=== PATIENT | female | born 1990 | race Caucasian/White ===

== ENCOUNTER 2020-10-10 16:31 | Emergency (ER) | payer BC, SELFPAY ==
--- NOTE | ~2020-10-10 | XR_ITS ---
EXAMINATION: XR chest 1V portable DATE: 10/10/2020 17:51 INDICATION: Chest pain TECHNIQUE: frontal view of the chest was obtained. COMPARISON: None FINDINGS: The lungs are clear with no focal airspace opacities, pulmonary edema, pleural effusion or pneumothor ax. The cardiomediastinal silhouette is normal. Visualized bones and soft tissues are unremarkable. IMPRESSION: 1. No acute cardiopulmonary disease. Reviewed, dictated and finalized at location A. L [employer]ER
--- NOTE | 2020-10-10 16:35 | ECG_ITS ---
Measurements Intervals [place] Rate: 98 P: 57 OK: 170 QRS: 40 QRSD: 77 T: 23 QT: 317 QTc: 405 Interpretive Statements SINUS RHYTHM WITH MARKED SINUS ARRHYTHMIA POSSIBLE LEFT ATRIAL ENLARGEMENT BORDERLINE ST-T WAVE ABNORMALITY- INFERIOR LEADS BASELINE ARTIFACT- I, II, III, AVR, AVL, AVF, V1 BORDERLINE ECG Electronically Signed On 10-10-2020 19:18:20 AGRICULTURAL RESEARCH TECHNICIAN by Nicolas Murillo D.O.
[2020-10-10 16:36] VITALS: BP 154/88; PULSE 92; RESP 18; TEMP 35.9; O2SAT 98
[2020-10-10 16:47] VITALS: PULSE 94
--- NOTE | 2020-10-10 16:57 | ED.CHESTPAIN ---
HPI - Chest Pain General Chief Complaint: Chest Pain Stated Complaint: Chest Pain, SOB, Headache Time Seen by Provider: 10/10/20 16:37 Source: patient Mode of arrival: ambulatory Limitations: no limitations History of Present Illness HPI narrative: Patient is a 30-year-old female who presents complaining of chest pain, shortness of breath, fever and headache starting this a.m. She reports taking Tylenol with limited relief. Reports temperature of 100.8 prior to arrival. She reports the chest pain started as mild, she reports chest pain increases with movement or deep breathing, however, reports pain is not constant. She reports a history of [place]'s disease, she is not on control, she is a non-smoker. She denies known exposure to Covid at this time. MD complaint: chest pain Related Data Home Medications Medication Instructions Recorded Confirmed No Home Medications 10/10/20 10/10/20 Allergies Allergy/AdvReac Type Severity Reaction Status Date / Time No Known Allergies Allergy Verified 10/10/20 16:40 Review of Systems Review of Systems: Narrative: CONSTITUTIONAL: Reports fever, denies chills or sweats. EYES: Denies visual changes, redness, or discharge. ENT: Denies rhinorrhea, congestion, sore throat, or otalgia. CARDIOVASCULAR: Reports chest pain, denies palpitations or edema. RESPIRATORY: Reports dyspnea, denies cough. GASTROINTESTINAL: Denies abdominal pain, nausea, vomiting, or diarrhea. GENITOURINARY: Denies dysuria or hematuria. SKIN: Denies rash or itching. MUSCULOSKELETAL: Denies back pain, joint pain, or myalgia. NEUROLOGIC: Reports headache, denies numbness, dizziness, or weakness. PSYCHIATRIC: Denies anxiety or depression. [facility] Past Medical History Medical History (Updated 10/10/20 @ 20:28 by JUAN Navarro) Addisons disease Surgical History Surgical History (Updated 10/10/20 @ 17:02 by JUAN Navarro) No significant past surgical history Family History Family History (Updated 10/10/20 @ 17:02 by JUAN Navarro) Other No significant family history Social History Social History (Updated 10/10/20 @ 17:02 by JUAN Navarro) Smoking status: Never smoker Alcohol intake: current Alcohol use details: Occasional Substance use: never Living arrangements: with family Comments At the time of signature, I have reviewed and agree with nursing past medical, surgical, social, and family history unless otherwise noted. Please see nursing chart for further information. There is no relevant family history pertinent to the presenting complaint. Exam Narrative: Exam Narrative: GENERAL: Well-appearing, well-nourished, and in no acute distress. HEAD: Normocephalic, atraumatic. EYES: No redness or drainage. Conjunctiva are normal. ENT: Mucous membranes pink and moist. Nares clear. No rhinorrhea. NECK: AROM. Supple. No lymphadenopathy. CHEST: No respiratory distress. Clear to auscultation. HEART: Regular rate and rhythm. No murmur appreciated. EXTREMITIES: Normal range of motion. No edema. SKIN: Warm, dry, no rash. NEURO: No focal deficits. Alert and oriented x3. PSYCH: Normal affect. No signs of depression or anxiety. Course Vital Signs Vital signs: Vital Signs Temperature 35.9 C L 10/10/20 16:36 Pulse Rate 92 10/10/20 16:36 Respiratory Rate 18 10/10/20 16:36 Blood Pressure 154/88 H 10/10/20 16:36 Pulse Oximetry 98 10/10/20 16:36 Temperature 35.9 C L 10/10/20 16:36 Pulse Rate 94 10/10/20 16:47 Respiratory Rate 18 10/10/20 16:36 Blood Pressure 154/88 H 10/10/20 16:36 Pulse Oximetry 98 10/10/20 16:36 Reviewed-patient is informed that they may have pre-hypertension or hypertension based on a blood pressure reading. I recommend the patient call the primary care provider listed on their discharge instructions or a physician of their choice this week to arrange follow-up for further evaluation of poss
[2020-10-10] MEDS: ASPIRIN 81 MG CHEWABLE TABLET 324 MG PO (16:58)
[2020-10-10 18:09] LABS: Basophils Percent Auto 0.5 % (0.2-1.2); Eosinophils Absolute Auto 0.3 K/mm3 (0-0.3); Eosinophils Percent Auto 5.3 % (0-4.4); Hematocrit 38.9 % (37.0-47.0); Hemoglobin 13.3 g/dL (12.0-15.0); Immature Granulocyte Absolute 0.01 K/mm3 (0.00-0.031); Immature Granulocyte Percent A 0.2 % (0-0.5); Lymphocytes Absolute Auto 1.58 K/mm3 (0.9-3.2); Lymphocytes Percent Auto 25.3 % (18.3-44.2); Mean Corpuscular HGB Conc 34.2 g/dl (32-36); Mean Corpuscular Hemoglobin 31.3 pg (26-34); Mean Corpuscular Volume 91.5 fl (80-100); Mean Platelet Volume 10.7 fl (7.4-10.4); Monocytes Absolute Auto 0.6 K/mm3 (0.1-0.6); Monocytes Percent Auto 8.8 % (2.6-8.5); Neutrophils Absolute Auto 3.8 K/mm3 (1.3-6.7); Neutrophils Percent Auto 59.9 % (45.5-73.1); Platelet Count Result 263 k/mm3 (150-375); Red Blood Count 4.25 M/mm3 (4.2-5.4); Red Cell Distribution Width 11.4 % (11.5-14.5); White Blood Count 6.3 K/mm3 (4.5-10.0)
[2020-10-10 18:20] LABS: Anion Gap 6 mmol/L (8-16); Blood Urea Nitrogen 9 mg/dL (7-17); Calcium 9.1 mg/dL (8.4-10.2); Carbon Dioxide 23 mmol/L (22-30); Chloride 109 mmol/L (98-107); Estimated CRCL calculation 135 ml/min; Estimated Glomerular Filt Rate > 60; Glucose 88 mg/dL (65-105); Potassium 3.7 mmol/L (3.4-5.0); Sodium 138 mmol/L (137-145)
[2020-10-10 18:32] LABS: Troponin I < 0.012 ng/mL (0.000-0.034)
[2020-10-10 18:56] LABS: Partial Thromboplastin Time 33.7 SECONDS (22.3-36.8); Prothrombin Time 13.8 Seconds (11.1-14.7)
[2020-10-10 18:59] LABS: D Dimer 0.32 ug/mL (<0.48)
[2020-10-10 20:11] LABS: Troponin I < 0.012 ng/mL (0.000-0.034)
[2020-10-10 21:12] VITALS: BP 108/77; PULSE 103; RESP 20; TEMP 37.1; O2SAT 99
[2020-10-11 18:46] LABS: SARS-CoV-2 RNA PCR Negative
== END 2020-10-10 21:13 | disposition home or self-care (01) ==
PROVIDERS: Emergency Medicine; Emergency Provider Nurse Practitioner
DX: M94.0 Chondrocostal junction syndrome [Tietze] (principal); Z20.822 Contact with and (suspected) exposure to COVID-19; R94.31 Abnormal electrocardiogram [ECG] [EKG]; E27.1 Primary adrenocortical insufficiency; R03.0 Elevated blood-pressure reading, without diagnosis of hypertension
CPT/HCPCS: 36415; 71045; 80048; 84484; 85025; 85380; 85610; 85730; 93005; 99284; A9270; C9803; U0003; U0005

== ENCOUNTER 2021-01-17 23:24 | Emergency (ER) | payer BC, SELFPAY ==
--- NOTE | ~2021-01-17 | XR_ITS ---
EXAMINATION: XR lumbar spine 2-3V DATE: 01/18/2021 01:50 INDICATION: Left-sided low back pain. Fall. TECHNIQUE: 3 views of lumbar spine were obtained. COMPARISON: None. FINDINGS: There is 6 degrees curvature of lumbar spine. Vertebral body heights and intervertebral dis c heights are normal. The facet joints are unremarkable. Surgical clips in the right upper quadrant a re likely from cholecystectomy. IMPRESSION: 1. No etiology for the patient's symptoms. Reviewed, dictated and finalized at location A.
--- NOTE | ~2021-01-17 | XR_ITS ---
EXAMINATION: XR pelvis 1-2V DATE: 01/18/2021 01:51 INDICATION: Left hip pain. TECHNIQUE: An anteroposterior view of the pelvis was obtained. COMPARISON: None. FINDINGS: Bone alignment is normal. No fracture. Joint spaces are well maintained. IMPRESSION: 1. Normal pelvis. Reviewed, dictated and finalized at location A. IMPRESSION: 1. Normal pelvis.
--- NOTE | ~2021-01-17 | XR_ITS ---
EXAMINATION: XR thoracic spine 3V DATE: 01/18/2021 01:51 INDICATION: Low back pain. Fall. TECHNIQUE: 3 views of thoracic spine were obtained. COMPARISON: None. FINDINGS: There is 3 degrees levocurvature of thoracic spine. Vertebral body heights are normal. Ther e are endplate osteophytes at a few levels. Intervertebral disc heights are normal. Surgical clips in the right upper quadrant are likely from cholecystectomy. IMPRESSION: 1. Mild thoracic spondylosis. Reviewed, dictated and finalized at location A.
[2021-01-17 23:32] VITALS: BP 144/104; PULSE 91; RESP 18; TEMP 36.8; O2SAT 100
--- NOTE | 2021-01-18 00:35 | ED.BACK ---
HPI - Back Pain/Injury General Chief Complaint: Back Pain/Injury <Charlie Loco MD - Last Filed: 01/18/21 00:42> Stated Complaint: lower back injury <Charlie Loco MD - Last Filed: 01/18/21 00:42> Time Seen by Provider: 01/18/21 00:42 <Charlie Loco MD - Last Filed: 01/18/21 00:42> Source: patient <Charlie Loco MD - Last Filed: 01/18/21 00:42> Mode of arrival: ambulatory <Charlie Loco MD - Last Filed: 01/18/21 00:42> Limitations: no limitations <MD Sebastián Foreman Last Filed: 01/18/21 00:42> History of Present Illness HPI Narrative: Patient is 31 years old white female presents to the ED with lower back pain started yesterday after a fall. Patient was running in the kitchen, wearing socks, slipped and flew in the air landed flat on her back. Patient denies other injuries, no loss of consciousness, was able to manage to get up and walk to her bedroom. Patient been using [id number] ibuprofen, Tylenol without any improvement. patient denies bowel dysfunction, bladder dysfunction, altered sensation, focal weakness, or saddle numbness, patient reported the lower back pain is spastic, intermittent shooting to her legs. No history of back pain. History of Rigo's disease. Patient drove herself to the emergency room <Charlie Loco MD - Last Filed: 01/18/21 00:42> Related Data Home Medications: Home Medications Medication Instructions Recorded Confirmed prednisone 01/18/21 <Charlie Loco MD - Last Filed: 01/18/21 00:42> Allergies/Adverse Reactions: Allergies Allergy/AdvReac Type Severity Reaction Status Date / Time No Known Allergies Allergy Verified 10/10/20 16:40 <MD Sebastián Foreman Last Filed: 01/18/21 00:42> Review of Systems Review of Systems: Narrative: CONSTITUTIONAL: Denies fever, chills, or sweats. EYES: Denies visual changes, redness, or discharge. ENT: Denies rhinorrhea, congestion, sore throat, or otalgia. CARDIOVASCULAR: Denies chest pain, palpitations, or edema. RESPIRATORY: Denies cough or dyspnea. GASTROINTESTINAL: Denies abdominal pain, nausea, vomiting, or diarrhea. GENITOURINARY: Denies dysuria or hematuria. SKIN: Denies rash or itching. MUSCULOSKELETAL: Denies back pain, joint pain, or myalgia. NEUROLOGIC: Denies headache, numbness, or weakness. PSYCHIATRIC: Denies anxiety or depression. <Charlie Loco MD - Last Filed: 01/18/21 00:42> [facility] Past Medical History Medical History: Medical History Addisons disease <Charlie Loco MD - Last Filed: 01/18/21 00:42> Surgical History Surgical History: Surgical History No significant past surgical history <Charlie Loco MD - Last Filed: 01/18/21 00:42> Family History Family History: Family History Other No significant family history <Charlie Loco MD - Last Filed: 01/18/21 00:42> Social History Social History: Social History Smoking status: Never smoker Alcohol intake: current Substance use: never <Charlie Loco MD - Last Filed: 01/18/21 00:42> Exam Narrative: Exam Narrative: General appearance: Well-developed, well-nourished, looks uncomfortable Skin: Normal color Head: Normocephalic, nontraumatic Eyes: Clear conjunctiva ENT: Oropharynx normal, ears normal, nose normal Neck: Supple, nontender Chest and respiratory: Airway patent, no respiratory distress, no accessory muscle use Heart: Regular rate/rhythm Abdomen: Soft, nontender, no organomegaly, quiet bowel sounds Vascular: Normal peripheral pulses, normal capillary refill. Musculoskeletal: Severe diffuse tenderness mid lower thoracic and mid lumbar. No bruises, no swelling or rash. Severe limited range of motion Neurologic: Alert and oriented ?3, RETAIL PHARMACY TECHNICIAN is normal as tested,
[2021-01-18] MEDS: KETOROLAC 30 MG/ML VIAL (*BKC) IV PUSH (01:15)
[2021-01-18] MEDS: HYDROCORTISONE SODIUM SUCCINATE 100 MG/2 ML VIAL IV PUSH (01:19)
[2021-01-18] MEDS: HYDROmorphone HCL INJ (*CRX) 1 MG/ML SYR 0.5 MG IV PUSH (01:22)
[2021-01-18] MEDS: diazePAM INJ (*CRX) 10 MG/2 ML SYRINGE 5 MG IV PUSH (01:23)
[2021-01-18 02:30] VITALS: BP 117/71; PULSE 74; RESP 16; O2SAT 100
== END 2021-01-18 02:55 | disposition home or self-care (01) ==
PROVIDERS: Emergency Provider Emergency Medicine; PCP Chiropractor
DX: S30.0XXA Contusion of lower back and pelvis, initial encounter (principal); E27.1 Primary adrenocortical insufficiency; M47.814 Spondylosis without myelopathy or radiculopathy, thoracic region; W01.0XXA Fall on same level from slipping, tripping and stumbling without subsequent striking against object, initial encounter
CPT/HCPCS: 72072; 72100; 72170; 81025; 96374; 96375; 99284; J1170; J1720; J1885; J3360

== ENCOUNTER 2022-03-31 10:18 | Outpatient (CLI) | payer BC, SELFPAY ==
[2022-03-31 10:43] LABS: Basophils Absolute Auto 0.1 K/mm3 (0.0-0.1); Basophils Percent Auto 1.1 % (0.2-1.2); Eosinophils Absolute Auto 0.5 K/mm3 (0-0.3); Eosinophils Percent Auto 10.8 % (0-4.4); Hematocrit 35.4 % (37.0-47.0); Lymphocytes Absolute Auto 1.54 K/mm3 (0.9-3.2); Lymphocytes Percent Auto 33.9 % (18.3-44.2); Mean Corpuscular HGB Conc 33.9 g/dl (32-36); Mean Corpuscular Hemoglobin 31.4 pg (26-34); Mean Corpuscular Volume 92.7 fl (80-100); Mean Platelet Volume 10.5 fl (7.4-10.4); Monocytes Absolute Auto 0.4 K/mm3 (0.1-0.6); Monocytes Percent Auto 8.8 % (2.6-8.5); Neutrophils Absolute Auto 2.1 K/mm3 (1.3-6.7); Neutrophils Percent Auto 45.4 % (45.5-73.1); Platelet Count Result 291 k/mm3 (150-375); Red Blood Count 3.82 M/mm3 (4.2-5.4); White Blood Count 4.5 K/mm3 (4.5-10.0)
== END 2022-03-31 10:19 | disposition home or self-care (01) ==
LOC: ANHSURGERY 10:23
PROVIDERS: PCP Family Medicine; Visit Provider Student in an Organized Health Care Education/Training Program
DX: D21.9 Benign neoplasm of connective and other soft tissue, unspecified (principal)
CPT/HCPCS: 36415; 85025; 86850; 86900; 86901

== ENCOUNTER 2022-04-02 00:40 | Day surgery (SDC) | payer BC, SELFPAY ==
[2022-03-27 13:41] VITALS: BMI 23.1
--- NOTE | 2022-03-27 13:50 | PC.NURSE ---
Report to the Outpatient Waiting Room, entrance under the green pavilion located off [facility], at time 10:00 on date _04/02/22___. OR Time: _1200_. - You and your visitor will be asked a series of questions to screen for COVID 19 for your protection. - Only one visitor is allowed at this time. - The patient visitor is requested to leave or wait in car when not with patient. - A mask is required within the hospital. Patients may have clear liquids (water, carbonated beverages, clear teas, apple juice) until 3 hours prior to surgery with a maximum of 20 ounces. - No food from midnight until time of surgery - Infants may have breast milk until 4 hours before surgery, formula 6 hours prior to surgery. - Children will be allowed to drink immediately following surgery. If applicable, please bring a bottle or sippy cup to assist with drinking. Juice, water, soda, and popsicles are readily available. For infants on formula, please bring formula the day of surgery. Pacifiers are allowed. Take the following medications with a SIP of water the morning of surgery: ___NONE Medications to discontinue per physician NONE Date to take last dose__N/A Please no make-up, nail stateless, hairspray, perfume, deodorant, or body powder the day of surgery. No jewelry (including any body piercings) or valuables the day of surgery, leave them at home. Please take a shower or bath the night before, or the morning of, surgery with an antibacterial soap. Wear comfortable, loose fitting clothing. Children are encouraged to wear pajamas. - Jewelry must be removed prior to entering the operating room. Rings and piercings that are not removed may be cut off. - The hospital will not accept responsibility for valuables. - Please leave all valuables, including medications, at home the day of surgery. If you are going home after surgery, a licensed driver sales must drive you home. - NO public transportation without another adult. - We recommend that an adult stay with you for 24 hours following discharge. - We also recommend that you do not drive, make important decision, drink alcoholic beverages, or take any drugs that were not prescribed by your health care provider for at least 24 hours after your discharge time. For Pediatric surgeries, we recommend two adults accompany the child home (only one inside the building at this time). Follow any additional instructions given to you from your surgeon. If you or anyone in your household have experienced Covid symptoms in the past week, please notify your surgeon or the nurse liaison at the phone number below for possible testing. Telephone instructions given to _PATIENT and asked if any additional questions and then verbalized understanding. Patient advised to call surgeon office or pre surgery nurse liaison [phone] if any additional questions.
--- NOTE | 2022-04-01 16:05 | PM.IMHP ---
H&P: HPI History of Present Illness Date/Time: 04/01/22 16:05 Chief Complaint: abnormal uterine bleeding uterine fibroids Narrative: 32 yo who presents for robotic assisted TLH/BS for AUB secondary to uterine fibroids. Pt was complaining of heavy painful periods. Pt was noted to have a 3.5 cm uterine fibroid. Pt has tried and failed medical management. Pt symptoms were so bad she was missing 2-3 days of work per month. Pt desires definitive management. Review of Systems Cardiovascular: Cardiovascular: Denies chest pain, Denies leg edema, Denies palpitations, Denies dyspnea and Denies dyspnea on exertion Respiratory: Respiratory: Denies cough, Denies dyspnea and Denies dyspnea on exertion Gastrointestinal: Gastrointestinal: Denies abdominal pain, Denies constipation, Denies diarrhea, Denies nausea and Denies vomiting Genitourinary: Genitourinary: Denies hematuria, Denies urinary frequency, Denies dysuria, Denies pelvic pain, Denies urinary incontinence and Denies vaginal discharge Neurologic: Reports system reviewed and no additional complaints, except as documented Psychiatric: Psychiatric: Reports no additional psychiatric complaints Endocrine: Endocrine: Denies palpitations PMFSH Past Medical History Medical History (Updated 04/01/22 @ 16:09 by Thomas Root MD) Addisons disease Surgical History Surgical History No significant past surgical history Family History Family History Other No significant family history Social History Social History Smoking status: Never smoker Tobacco type: e-cigarettes/vaping Additional smoking assessment comments: VAPING FOR ONE YEAR Alcohol intake: former Alcohol use details: LAST DRANK 3 YRS AGO Substance use: never Substance use type: does not use Meds Home Medications and Allergies Home Medications Medication Instructions Recorded Confirmed Type No Home Medications 03/27/22 03/27/22 History Allergies Allergy/AdvReac Type Severity Reaction Status Date / Time No Known Allergies Allergy Verified 03/27/22 13:39 Exam Const: General: no acute distress Eyes: EOM: EOMs intact bilaterally Neck: Neck: supple Thyroid: thyroid normal Chest: Breast/axilla inspection: normal inspection of the breasts Breast/axilla palpation: normal palpation of the breasts, normal palpation of the axillae and no axillary lymphadenopathy Resp: Effort & Inspection: normal respiratory effort Auscultation: clear to auscultation bilaterally Cardio: Rate: regular rate Rhythm: regular rhythm GI: Inspection: non-distended GI Palp: Yes Soft to palpation, No Tenderness to palpation present (GI) and No Guarding due to palpation present (GI) Auscultation: normal bowel sounds : General: No bladder normal to palpation External Female Exam: normal external appearance Speculum Exam - Vagina: normal vaginal discharge and No vaginal bleeding Speculum Exam - Cervix: nontender Bimanual exam- vagina & uterus: No bladder normal to palpation and No Cervical tenderness present OB/external & speculum: No vaginal bleeding Skin: General skin exam: normal color and no rashes or lesions noted Neuro: Cognition (Neuro): normal cognition Speech: normal speech Extrem: General: normal to inspection and no edema Psych: Mental Status: mental status grossly normal Affect: normal affect Assessment and Plan Assessment and plan (1) Abnormal uterine bleeding (AUB): Code(s): N93.9 - Abnormal uterine and vaginal bleeding, unspecified Status: Acute Assessment and Plan: Pt complaining of heavy and painful menses symptoms are bad enough to cause her to miss work pt has tried and failed medical management H/H stable plan for TLH/BS (2) Uterine fibroid: Code(s): D25.9 - Leiomyoma of ut
[2022-04-02] VITALS (11 sets, daily range): BP systolic 92–126; BP diastolic 41–72; PULSE 61–99; RESP 10–20; TEMP 36–37.2; O2SAT 96–100
--- NOTE | 2022-04-02 08:27 | P.PNAN_ITS ---
Anes - Initial Pre Proc Eval Procedure: Operation Date: 04/02/22 12:00 Proposed Procedures p Robotic Total Laparoscopic Hysterectomy With Bilateral Salpingectomy - Thomas Root MD Date/Time: 04/02/22 08:27 Surgeon: Thomas Root MD Pre Op Diagnosis: Enlarged Uterus, Fibroids, Excessive Bleeding Patient Data Age: 32 Gender: F Height: 1.7 m Weight: 67 kg Allergies Allergy/AdvReac Type Severity Reaction Status Date / Time No Known Allergies Allergy Verified 04/02/22 09:57 Home Medications Medication Instructions Recorded Confirmed Type No Home Medications 03/27/22 03/27/22 History Patient hx anesthesia problems: none Family hx anesthesia problems: none Results Review: All pre-operative results and documents have been reviewed as part of the pre- operative evaluation. [facility] Past Medical History Medical History (Updated 04/01/22 @ 16:09 by Thomas Root MD) Addisons disease Surgical History Surgical History No significant past surgical history Family History Family History Other No significant family history Social History Social History Smoking status: Never smoker Tobacco type: e-cigarettes/vaping Additional smoking assessment comments: VAPING FOR ONE YEAR Alcohol intake: former Alcohol use details: LAST DRANK 3 YRS AGO Substance use: never Substance use type: does not use Living arrangements: with family Anes - Eval Final PreProcedure Day of Procedure 04/02/22 08:27 Patient weight: normal Heart: regular rate and rhythm Lungs: clear to auscultation and normal air movement Airway: Mallampati scale class II Neurological: alert and oriented Last oral intake: >/= 8 hours ASA classification: II Emergent: no Anesthetic plan: proceed Anesthesia type and monitoring: general ETT Results Review: All pre-operative results and documents have been reviewed as part of the pre- operative evaluation. Informed Consent: The patient's anesthetic plan and its attendant risks and benefits were discussed with the patient/family/POA. Questions were solicited and answers provided to the satisfaction of the patient/family/POA.
[2022-04-02] MEDS: ACETAMINOPHEN 500 MG TABLET 1000 MG PO (10:19)
--- NOTE | 2022-04-02 10:27 | WPDHPUPDATE1 ---
History and Physical Update Update Date/Time: 04/02/22 10:27 History and Physical has been reviewed, including an updated exam of the patient. There are NO changes in the patient's condition. Risks, benefits, and alternatives have been discussed and questions answered. Patient agrees to proceed with procedure.
[2022-04-02] MEDS: LACTATED RINGERS 1,000 ML 30 ML IV CONT ×2 (10:55→13:50)
[2022-04-02] MEDS: KETOROLAC 15 MG/ML VIAL (*BKC) IV PUSH (11:03)
[2022-04-02] MEDS: ceFAZolin 2 GM/D5W 50 ML 2 GM/50 ML BAG IVPB (12:13)
[2022-04-02] MEDS: LIDOCAINE/EPINEPHRINE 0.5%/1:200,000 50 ML VIAL 30 ML INFILTRATE (12:56)
--- NOTE | 2022-04-02 13:42 | W.PM.PROC2 ---
Procedure Note - Detailed Date of Procedure 04/02/22 Pre-op Diagnosis Enlarged Uterus, Fibroids, Excessive Bleeding Post-op Diagnosis Same Procedure Performed Robotic assisted TLH/BS Surgeon Thomas Root MD Anesthesia General Indications AUB-L Findings 3-4 cm posterior submucosal uterine fibroid, normal appearing bilateral fallopian tubes and ovaries Description of Procedure After the patient was appropriately consented she was taken to the operating room where she was transferred to the table in a dorsal supine position. General anesthesia was then induced with endotracheal intubation. The patient was transferred to a dorsal lithotomy position using adjustable yellow-fin stirrups. Her position was adjusted for appropriate support of her lower back and lower extremities. The patient was prepped and draped. A transurethral harp catheter was place. The cervix was sequentially dilated and a Audi Delineater uterine manipulator placed in typical fashion about a 3cm HILARIO ring. Gloves were changed. After confirmation of a functioning orogastric tube, lidocaine was injected at Luna's point in the LUQ and a 5mm incision was made. A 5mm Optiview trocar was then inserted into the abdominal cavity under direct visualization and done so without complication. The abdomen was then insufflated with approximately 2-3L of CO2 establishing a pneumoperitoneum and the patient was placed in Trendelenburg position. Just above the umbilicus in the midline, a 10mm incision made after injection of lidocaine and a 12mm bladeless trocar advanced into the abdominal cavity under direct visualization without incident. We subsequently placed two robotic ports in a similar fashion, one in the left mid-quadrant and one in the right, 10cm lateral to the midline port. The robot was then docked. Attention was turned to the left pelvis. The left fallopian tube was removed by sequentially dividing the mesosalpinx towards the uterus sparing the ovary. The utero-ovarian ligament was desiccated and transected, as was the round ligament. The posterior peritoneal leaf was taken down to the HILARIO ring. The anterior leaf was developed as well as the start of the bladder flap. The left uterine artery was then skeletonized and desiccated and transected just above the level of the HILARIO ring. Attention was turned to the right pelvis. The right fallopian tube was removed by sequentially dividing the mesosalpinx towards the uterus sparing the ovary. The utero-ovarian ligament was desiccated and transected, as was the round ligament. The posterior peritoneal leaf was taken down to the HILARIO ring. The anterior leaf was developed as well as the start of the bladder flap. The right uterine artery was then skeletonized and desiccated and transected just above the level of the HILARIO ring. The bladder was then further dissected inferiorly over the level of the HILARIO ring. A circumferential colpotomy was made using monopolar current. The uterus, cervix, bilateral tubes were then delivered transvaginally. I then placed a single figure of eight suture of 0-vicryl in the left corner of the vaginal cuff. I then re-approximated the colpotomy with a running #1 PDO Quill suture in 2 layers. Following this dissection, the abdomen and pelvis were copiously irrigated and all surgical sites found to be hemostatic. Skin sites were reapproximated with 4-0 Vicryl in a subcuticular fashion. Steri-Strips were placed. The patient tolerated the procedure well. Sponge, needle and instrument counts were correct x 2 and the patient was taken to recovery in stable condition. Ancef wase given for antimicrobial prophylaxis. The patient had SCD's on for VTE prophylaxis during the entire procedure.
[2022-04-02] MEDS: fentaNYL CITRATE INJ (*CRX) 100 MCG/2 ML VIAL 25 MCG IV PUSH ×5 (13:58→14:28)
[2022-04-02] MEDS: HYDROmorphone HCL INJ (*CRX) 1 MG/ML SYR 0.5 MG IV PUSH ×4 (14:36→15:27)
--- NOTE | 2022-04-02 15:39 | PC.NURSE ---
PT arrived on unit via bed unaccompanied by family or friends. PT alert and awake and oriented to room and surrounding area. PT introductions made and plan of care discussed per post op resident care spec surgery, pain management, daily care activities. PT sole recipient of such instructions and no barriers to learning identified at this time. PT received instructions this shift per one to one discussion, and demonstrations. PT verbalized understanding of such care.
[2022-04-02] MEDS: HYDROcodone/acetaminophen (*CRX) 5-325 MG TABLET 1 TAB PO ×3 (16:30→23:14)
[2022-04-02] MEDS: LACTATED RINGERS 1,000 ML 125 ML IV CONT (16:35)
[2022-04-02] MEDS: KETOROLAC 30 MG/ML VIAL (*BKC) IV PUSH ×2 (16:36→23:15)
[2022-04-02] MEDS: SENNA/DOCUSATE SODIUM TABLET 2 TAB PO (19:31)
[2022-04-02] MEDS: SIMETHICONE 80 MG TAB.CHEW (19:31)
[2022-04-03] MEDS: HYDROcodone/acetaminophen (*CRX) 10-325 MG TABLET 1 TAB PO (04:01)
[2022-04-03] MEDS: SIMETHICONE 80 MG TAB.CHEW PO ×2 (04:03→08:04)
[2022-04-03 04:20] VITALS: BP 100/49; PULSE 66; RESP 16; TEMP 36.8
[2022-04-03 05:49] LABS: Basophils Percent Auto 0.4 % (0.2-1.2); Eosinophils Absolute Auto 0.1 K/mm3 (0-0.3); Eosinophils Percent Auto 0.7 % (0-4.4); Hematocrit 32.6 % (37.0-47.0); Hemoglobin 10.7 g/dL (12.0-15.0); Immature Granulocyte Absolute 0.03 K/mm3 (0.00-0.031); Immature Granulocyte Percent A 0.3 % (0-0.5); Lymphocytes Absolute Auto 1.89 K/mm3 (0.9-3.2); Lymphocytes Percent Auto 19.7 % (18.3-44.2); Mean Corpuscular HGB Conc 32.8 g/dl (32-36); Mean Corpuscular Hemoglobin 30.7 pg (26-34); Mean Corpuscular Volume 93.4 fl (80-100); Mean Platelet Volume 11.5 fl (7.4-10.4); Monocytes Absolute Auto 0.7 K/mm3 (0.1-0.6); Monocytes Percent Auto 7.7 % (2.6-8.5); Neutrophils Absolute Auto 6.8 K/mm3 (1.3-6.7); Neutrophils Percent Auto 71.2 % (45.5-73.1); Platelet Count Result 244 k/mm3 (150-375); Red Blood Count 3.49 M/mm3 (4.2-5.4); White Blood Count 9.6 K/mm3 (4.5-10.0)
[2022-04-03 05:57] LABS: Anion Gap 4 mmol/L (8-16); Blood Urea Nitrogen 9 mg/dL (7-17); Calcium 8.4 mg/dL (8.4-10.2); Carbon Dioxide 23 mmol/L (22-30); Chloride 108 mmol/L (98-107); Estimated CRCL calculation 112 ml/min; Estimated Glomerular Filt Rate > 60; Glucose 110 mg/dL (65-110); Potassium 3.4 mmol/L (3.4-5.0); Sodium 135 mmol/L (137-145)
[2022-04-03 07:30] VITALS: PULSE 85; RESP 16; O2SAT 99
[2022-04-03 08:00] VITALS: BP 99/50; PULSE 85; RESP 16; TEMP 36.7; O2SAT 99
[2022-04-03] MEDS: HYDROcodone/acetaminophen (*CRX) 5-325 MG TABLET 1 TAB PO (08:04)
[2022-04-03] MEDS: IBUPROFEN 600 MG TABLET PO (08:05)
--- NOTE | 2022-04-03 08:11 | PM.DS ---
DS: Admitting Diagnosis Discharge Date 04/03/22 Admitting Diagnosis abnormal uterine bleeding uterine fibroids DS: Discharge Diagnosis Discharge Diagnosis (1) Abnormal uterine bleeding (AUB): Code(s): N93.9 - Abnormal uterine and vaginal bleeding, unspecified Status: Acute (2) Uterine fibroid: Code(s): D25.9 - Leiomyoma of uterus, unspecified Status: Acute DS: Summary Hospital Course Hospital Course: Brenda Foley was admitted after robotic assisted total laparoscopic hysterectomy and bilateral salpingo-oophorectomy for abnormal uterine bleeding. The above procedure was performed with no complications. She is doing well post op. She states her pain is well controlled with PO medications. She reports minimal bleeding. She is ambulating up to the chair. Her harp catheter was removed. She is tolerating PO without N/V. She reports passing flatus. Status at Discharge Overall status at discharge: patient is progressing back to baseline Time Spent with Patient Time attestation: Total time spent providing and/or coordinating discharge services: Time spent: Less than 30 minutes Exam Const: General: comfortable and no acute distress Limitations: no limitations Resp: Effort & Inspection: normal respiratory effort Auscultation: clear to auscultation bilaterally Cardio: Rate: regular rate Rhythm: regular rhythm GI: Inspection: non-distended GI Palp: Yes Soft to palpation, Yes Tenderness to palpation present (GI) (milder tenderness to deep palpation) and No Guarding due to palpation present (GI) Auscultation: normal bowel sounds Other: incisions C/D/I covered with dermabond Urinary Catheter: Urinary Catheter: urine clear Skin: General skin exam: normal color Extrem: General: normal to inspection Psych: Mental Status: mental status grossly normal Affect: normal affect DS: Data Data Completed and Pending Pending studies at discharge: Pending at discharge 04/02/22 12:48 Surgical [PTH] Routine Labs on day of discharge: Labs from last 24 hours 04/03/22 04/03/22 04:15 04:15 WBC 9.6 RBC 3.49 L Hgb 10.7 L Hct 32.6 L MCV 93.4 MCH 30.7 MCHC 32.8 RDW 12.0 Plt Count 244 MPV 11.5 H Immature Gran % (Auto) 0.3 Neut % (Auto) 71.2 Lymph % (Auto) 19.7 [place] % (Auto) 7.7 Eos % (Auto) 0.7 Baso % (Auto) 0.4 Lymph # (Auto) 1.89 [place] # (Auto) 0.7 H Eos # (Auto) 0.1 Baso # (Auto) 0.0 Abs Immat Gran (auto) 0.03 Absolute Neuts (auto) 6.8 H Absolute Nucleated RBC 0.0 Nucleated RBC % 0.0 Sodium 135 L Potassium 3.4 Chloride 108 H Carbon Dioxide 23 Anion Gap 4 L BUN 9 Creatinine 0.60 L Estim Creat Clear Calc 112 Estimated GFR > 60 Glucose 110 Calcium 8.4 Discharge Plan Discharge Patient Disposition: Home, Self-Care Patient Instructions: Laparoscopic Hysterectomy (DC) Follow-up/Referrals: Thomas Root MD [Physician] - 2 Weeks Discharge Medications: New sennosides-docusate sodium [Senokot-S] 8.6-50 mg Tablet 2 tab PO HS Qty: 30 0RF ibuprofen 600 mg Tablet 600 mg PO Q6H PRN (Reason: Cramping) Qty: 30 0RF oxycodone-acetaminophen 5-325 mg tablet 1 tablet PO Q6H PRN (Reason: pain) Qty: 30 0RF
== END 2022-04-03 11:05 | disposition home or self-care (01) ==
LOC: ANHSURGERY 09:40 → ANHOB2 15:35
PROVIDERS: PCP Family Medicine; Visit Provider Student in an Organized Health Care Education/Training Program
PROC: (CPT 58571; principal; 2022-04-02 12:00)
DX: N93.9 Abnormal uterine and vaginal bleeding, unspecified (principal); D25.2 Subserosal leiomyoma of uterus; N83.8 Other noninflammatory disorders of ovary, fallopian tube and broad ligament; E27.1 Primary adrenocortical insufficiency; F17.290 Nicotine dependence, other tobacco product, uncomplicated
CPT/HCPCS: 58571; S2900; 36415; 80048; 85025; 88307; 99199; A9270; J0690; J1100; J1170; J1885; J2250; J2405; J2704; J2710; J3010; J7030; J7120

== ENCOUNTER 2022-06-27 06:20 | Emergency (ER) | payer BC, SELFPAY ==
[2022-06-27] VITALS (16 sets, daily range): BP systolic 110–130; BP diastolic 67–93; PULSE 88–99; RESP 16–18; TEMP 36.6; O2SAT 77–100
--- NOTE | ~2022-06-27 | CT_ITS ---
EXAMINATION: CT soft tissue neck w con DATE: 06/27/2022 09:31 INDICATION: Right facial swelling. TECHNIQUE: Computed tomography (CT) of the neck was performed with 75 mL Omnipaque-350 intravenous co ntrast. Automated exposure control and iterative reconstruction technique were employed. The dose-matteo gth product was 442.21 mGy-cm. COMPARISON: None FINDINGS: Right parotid gland is enlarged with adjacent fat stranding extending to the inferior neck, consistent with acute parotiditis. There is no sialolith. There are no pathologically enlarged lymph nodes. The cervical carotid arteries are normal. The mastoid air cells are normal. There is mucosal thickening in the paranasal sinuses. There is kyphosis of cervical spine. IMPRESSION: 1. Right-sided parotiditis. Reviewed, dictated and finalized at location A. IMPRESSION: 1. Right-sided parotiditis.
--- NOTE | 2022-06-27 07:39 | ED.GENADULT ---
HPI - General Adult General Chief complaint: Skin/Abscess/Foreign Body Stated complaint: facial swelling Time Seen by Provider: 06/27/22 07:39 Source: patient and family History of Present Illness HPI narrative: 32 years old white female presents with pain and swelling the right face and right submandibular area started 2 to 3 days ago, was seen at urgent care yesterday and started on Augmentin. Patient reports fever up to 102.2 with chills, denies any vomiting, dental pain or headache Related Data Allergies Allergy/AdvReac Type Severity Reaction Status Date / Time No Known Allergies Allergy Verified 06/27/22 06:28 Review of Systems Review of Systems: All systems reviewed & are unremarkable except as noted in HPI and below PMFSH Past Medical History Medical History Addisons disease Surgical History Surgical History No significant past surgical history Family History Family History Other No significant family history Social History Social History Smoking status: Never smoker Tobacco type: e-cigarettes/vaping Additional smoking assessment comments: VAPING FOR ONE YEAR Alcohol intake: former Alcohol use details: LAST DRANK 3 YRS AGO Substance use: never Substance use type: does not use Gender identity (if verbalized by the patient): Female Sexual Orientation (if Verbalized by the Patient): Straight or Heterosexual Exam Narrative: General appearance: Well-developed, well-nourished Skin: Normal color Head: Normocephalic, nontraumatic Eyes: Clear conjunctiva ENT: Oropharynx normal, ears normal, nose normal diffuse tenderness and swelling of the right face at the parotid gland and right submandibular area. No erythema, no fluctuation Neck: Supple, nontender Chest and respiratory: Airway patent, no respiratory distress, no accessory muscle use Heart: Regular rate/rhythm Abdomen: Soft, nontender, no organomegaly, quiet bowel sounds Vascular: Normal peripheral pulses, normal capillary refill. Musculoskeletal: Normal range of motion, nontender back Neurologic: Alert and oriented ?3, SAP GATHERER is normal as tested, no gross motor deficit Course Consultations Consultation #1: Dr. Edward Continue Augmentin, prednisone, outpatient follow-up on Wednesday Date: 06/27/22 Time: 11:09 Vital Signs Vital signs: Vital Signs Temperature 36.6 C 06/27/22 06:24 Pulse Rate 99 06/27/22 06:24 Respiratory Rate 18 06/27/22 06:24 Blood Pressure 129/93 H 06/27/22 06:24 Pulse Oximetry 100 06/27/22 06:24 Oxygen Delivery Room Air 06/27/22 06:24 Temperature 36.6 C 06/27/22 06:24 Pulse Rate 99 06/27/22 06:24 Respiratory Rate 18 06/27/22 06:24 Blood Pressure 127/78 06/27/22 09:45 Pulse Oximetry 100 06/27/22 09:46 Oxygen Delivery Room Air 06/27/22 06:24 Medical Decision Making Vital Signs Vital Signs: Vital Signs Temperature 36.6 C 06/27/22 06:24 Pulse Rate 99 06/27/22 06:24 Respiratory Rate 18 06/27/22 06:24 Blood Pressure 129/93 H 06/27/22 06:24 Pulse Oximetry 100 06/27/22 06:24 Oxygen Delivery Room Air 06/27/22 06:24 Temperature 36.6 C 06/27/22 06:24 Pulse Rate 99 06/27/22 06:24 Respiratory Rate 18 06/27/22 06:24 Blood Pressure 127/78 06/27/22 09:45 Pulse Oximetry 100 06/27/22 09:46 Oxygen Delivery Room Air 06/27/22 06:24 Lab Data Result diagrams: 06/27/22 08:16 06/27/22 08:16 Labs: Lab Results 06/27
[2022-06-27 08:23] LABS: Basophils Percent Auto 0.5 % (0.2-1.2); Eosinophils Absolute Auto 0.3 K/mm3 (0-0.3); Eosinophils Percent Auto 3.5 % (0-4.4); Hematocrit 35.4 % (37.0-47.0); Hemoglobin 11.8 g/dL (12.0-15.0); Immature Granulocyte Absolute 0.02 K/mm3 (0.00-0.031); Immature Granulocyte Percent A 0.3 % (0-0.5); Lymphocytes Absolute Auto 1.47 K/mm3 (0.9-3.2); Lymphocytes Percent Auto 19.6 % (18.3-44.2); Mean Corpuscular HGB Conc 33.3 g/dl (32-36); Mean Corpuscular Hemoglobin 30.1 pg (26-34); Mean Corpuscular Volume 90.3 fl (80-100); Mean Platelet Volume 10.5 fl (7.4-10.4); Monocytes Absolute Auto 0.8 K/mm3 (0.1-0.6); Monocytes Percent Auto 11.1 % (2.6-8.5); Neutrophils Absolute Auto 4.9 K/mm3 (1.3-6.7); Platelet Count Result 265 k/mm3 (150-375); Red Blood Count 3.92 M/mm3 (4.2-5.4); Red Cell Distribution Width 12.1 % (11.5-14.5); White Blood Count 7.5 K/mm3 (4.5-10.0)
[2022-06-27 08:36] LABS: Alanine Aminotransferase 28 U/L (6-35); Albumin Level 4.3 g/dL (3.5-5.1); Alkaline Phosphatase 60 U/L (38-126); Anion Gap 10 mmol/L (8-16); Aspartate Amino Transferase 31 U/L (14-36); Bilirubin,Total 0.4 mg/dL (0.2-1.3); Blood Urea Nitrogen 8 mg/dL (7-17); Calcium 8.9 mg/dL (8.4-10.2); Carbon Dioxide 23 mmol/L (22-30); Chloride 104 mmol/L (98-107); Estimated Glomerular Filt Rate > 60; Glucose 88 mg/dL (65-110); Potassium 3.7 mmol/L (3.4-5.0); Sodium 137 mmol/L (137-145)
[2022-06-27] MEDS: SODIUM CHLORIDE 0.9% IV 2,000 ML 999 ML IV CONT (09:02)
[2022-06-27] MEDS: HYDROmorphone HCL INJ (*CRX) 1 MG/ML SYR 0.5 MG IV PUSH ×2 (09:03→10:45)
[2022-06-27] MEDS: ONDANSETRON INJ 4 MG/2 ML VIAL IV PUSH (09:04)
== END 2022-06-27 11:20 | disposition home or self-care (01) ==
PROVIDERS: Emergency Provider Emergency Medicine
DX: K11.21 Acute sialoadenitis (principal); E27.1 Primary adrenocortical insufficiency; F17.290 Nicotine dependence, other tobacco product, uncomplicated
CPT/HCPCS: 36415; 70491; 80053; 85025; 96361; 96374; 96375; 96376; 99284; J1170; J2405; J7030; Q9967

== ENCOUNTER 2022-09-05 08:28 | Emergency (ER) | payer OTHER, BC, SELFPAY ==
--- NOTE | ~2022-09-05 | XR_ITS ---
EXAMINATION: XR finger 3rd LT min 2V DATE: 09/05/2022 08:48 INDICATION: Pain and bruising at the distal left third digit post blunt trauma. TECHNIQUE: Dorsal palmar, lateral and 2 oblique views of the left third digit were obtained COMPARISON: None FINDINGS: Nondisplaced oblique tuft fracture of the left third distal phalanx extending proximally from the dis meghan tip to the radial side of the neck of the distal phalanx. Alignment remains essentially anatomic. No other fractures identified. Joint spaces are normal. Mild soft tissue swelling about the distal l eft third digit. IMPRESSION: 1. Nondisplaced extra articular fracture of the left third digit. Reviewed, dictated and finalized at location A. NUE T[employer] SPECIALIST
[2022-09-05 08:34] VITALS: BP 129/73; PULSE 81; RESP 16; TEMP 36.8; O2SAT 99
--- NOTE | 2022-09-05 08:48 | PC.NURSE ---
PT DECLINED ICE FOR COMFORT
--- NOTE | 2022-09-05 09:00 | ED.UPPEXIN ---
HPI - Extremity Injury (Upper) General Chief Complaint: Extremity Injury, Upper Stated Complaint: Left Hand/Finger Injury Time Seen by Provider: 09/05/22 09:00 Source: patient, RN notes reviewed and old records reviewed Mode of arrival: ambulatory Limitations: no limitations History of Present Illness HPI narrative: 32-year-old female who presents to [facility] with complaints of injury to the distal left 3rd digit of the left hand which occurred early this morning at 0118 when she smashed her finger between semi trailer door and metal bar. Patient has noted swelling to her 3rd finger distally left hand with ecchymosis, rates her pain 5/10 and has taken Ibuprofen for her discomfort. MD complaint: injury to: left and finger (3rd finger distally) Onset (ago): hour(s) (at 0118 this morning) Severity scale (1-10): 5 Treatments prior to arrival: NSAIDS Related Data Home Medications Medication Instructions Recorded Confirmed No Home Medications 09/05/22 09/05/22 Allergies Allergy/AdvReac Type Severity Reaction Status Date / Time No Known Allergies Allergy Verified 09/05/22 08:53 Review of Systems Review of Systems: CONSTITUTIONAL: Denies fever, chills, or sweats. CARDIOVASCULAR: Denies chest pain, palpitations, or edema. RESPIRATORY: Denies cough or dyspnea. SKIN: Denies rash or itching. Denies lacerations or abrasions MUSCULOSKELETAL: Reports pain to distal left third finger related to injury with swelling and ecchymosis noted NEUROLOGIC: Denies numbness, or weakness. All systems reviewed & are unremarkable except as noted in HPI and below PMFSH Past Medical History Medical History (Updated 09/09/22 @ 12:33 by Janneth Duncan NP) Addisons disease Clostridioides difficile infection november 2021 Shingles 2017 Surgical History Surgical History (Updated 09/09/22 @ 12:35 by Janneth Duncan NP) History of ankle surgery ankle fusion right History of hysterectomy History of tonsillectomy Hx of cholecystectomy Family History Family History Other No significant family history Social History Social History (Updated 09/09/22 @ 12:14 by Janneth Duncan NP) Smoking status: Current every day smoker Tobacco type: e-cigarettes/vaping Additional smoking assessment comments: VAPING FOR ONE YEAR Alcohol intake: former Alcohol use details: LAST DRANK 3 YRS AGO Substance use: never Substance use type: does not use Gender identity (if verbalized by the patient): Female Sexual Orientation (if Verbalized by the Patient): Straight or Heterosexual Comments At time of signature, agree with nursing past medical, surgical, social and family history. There is no relevant family history pertinent to the presenting complaint Exam Narrative: GENERAL: Well-appearing, well-nourished, and in no acute distress. HEAD: Normocephalic, atraumatic. EYES: PERRLA and EOMI. ENT: Nares clear, no rhinorrhea or epistaxis. Mucous membranes moist. NECK: Supple. CHEST: Clear to auscultation. No respiratory distress. HEART: Regular rate and rhythm. No murmur heard. Normal peripheral pulses. ABDOMEN: Soft, nontender, nondistended, normal active bowel sounds. EXTREMITIES: Normal range of motion. No edema. SKIN: Warm, dry, no rash. Exception noted to left third finger distally which is swollen and with some bruising and pain related to injury, strong left radial pulse, nail beds hill briskly left hand. NEURO: No focal deficits. Alert and oriented x3. Course Course Level of Care: Express Care Visit Vital Signs Vital signs: Vital Signs Temperature 36.8 C 09/05/22 08:34 Pulse Rate 81 09/05/22 08:34 Respiratory Rate 16 09/05/22 08:34 Blood Pressure 129/73 09/05/22 08:34 Pulse Oximetry 99 09/05/22 08:34 Oxygen Delivery Room Air 09/05/22 08:34 Temperature 36.8 C 09/05/22 08:34 Pulse Rate 81 09/05/22 08:34 Respiratory Rat
== END 2022-09-05 09:25 | disposition home or self-care (01) ==
PROVIDERS: Emergency Provider Registered Nurse
DX: S62.663A Nondisplaced fracture of distal phalanx of left middle finger, initial encounter for closed fracture (principal); X58.XXXA Exposure to other specified factors, initial encounter; E27.1 Primary adrenocortical insufficiency; F17.290 Nicotine dependence, other tobacco product, uncomplicated
CPT/HCPCS: 29130; 73140; 99214; G0463

== ENCOUNTER 2024-03-28 17:14 | Emergency (ER) | payer BC, SELFPAY ==
[2024-03-28 17:27] VITALS: BP 128/69; PULSE 85; RESP 15; TEMP 36.3; O2SAT 100
--- NOTE | 2024-03-28 17:53 | ED.WOUNDLAC ---
HPI - Wound/Laceration General Chief Complaint: Wound/Laceration Stated Complaint: Dog Bite Time Seen by Provider: 03/28/24 17:45 Source: patient, family, RN notes reviewed and old records reviewed Mode of arrival: ambulatory Limitations: no limitations History of Present Illness HPI narrative: 34 year old female who presents to [facility] care accompanied by with complaints of being bit by dog today around 4:00PM in the right side of her face. Patient reports that she was fostering a dog and it bit her today. Patient has 2 puncture tapia to the right side of her face with some abrasions noted and mild swelling. Patient reports that she has cleansed area with hydrogen peroxide.Patient reports history of MRSA infection in past to right hip area. Patient reports that her tetanus is not up to date. Onset (ago): hour(s) (1600) Location: face Place: home Patient tetanus UTD: No Treatments prior to arrival: other (cleansed with peroxide) Related Data Home Medications Medication Instructions Recorded Confirmed Ubrelvy 03/28/24 fluticasone furoate 200 inhalation 03/28/24 mcg-vilanterol 25 mcg/dose inhalation powder (Breo Ellipta) pantoprazole 40 mg tablet,delayed mg PO 03/28/24 release tramadol 50 mg tablet mg 03/28/24 Allergies Allergy/AdvReac Type Severity Reaction Status Date / Time No Known Allergies Allergy Verified 03/28/24 17:18 Review of Systems Review of Systems: CONSTITUTIONAL: Denies fever, chills, or sweats. CARDIOVASCULAR: Denies chest pain, palpitations, or edema. RESPIRATORY: Denies cough or dyspnea. GASTROINTESTINAL: Denies abdominal pain, nausea, vomiting SKIN: Reports redness and swelling. puncture wounds X2 to right side of face with area of facial skin abrasion. Denies purulent drainage, vesicles, bullae, numbness, pain beyond proportion MUSCULOSKELETAL: Denies myalgia. NEUROLOGIC: Denies headache, numbness All systems reviewed & are unremarkable except as noted in HPI and below PMFSH Past Medical History Medical History Addisons disease reports that she does not take daily steroid Clostridioides difficile infection november 2021 MRSA infection right hip in past Shingles 2017 Surgical History Surgical History History of ankle surgery ankle fusion right History of hysterectomy History of tonsillectomy Hx of cholecystectomy Family History Family History Other No significant family history Social History Social History (Updated 03/30/24 @ 09:59 by Janneth Duncan NP) Smoking status: Former smoker Tobacco type: e-cigarettes/vaping Alcohol intake: former Alcohol use details: LAST DRANK 3 YRS AGO Substance use: never Substance use type: does not use Living arrangements: with family Gender identity (if verbalized by the patient): Female Sexual Orientation (if Verbalized by the Patient): Straight or Heterosexual Comments At time of signature, agree with nursing past medical, surgical, social and family history. There is no relevant family history pertinent to the presenting complaint Exam Narrative: GENERAL: Well-appearing, well-nourished, and in no acute distress. HEAD: Normocephalic, atraumatic. EYES: PERRLA and EOMI. ENT: Nares clear, no rhinorrhea or epistaxis. Mucous membranes moist. NECK: Supple.no lymphadenopathy CHEST: Clear to auscultation. No respiratory distress.SAO2 100% on room air HEART: Regular rate and rhythm. No murmur heard. Normal peripheral pulses. ABDOMEN: Soft, nontender, nondistended, normal active bowel sounds. EXTREMITIES: Normal range of motion. No edema. SKIN: Warm, dry. 2 puncture wounds to the right side of her face with some abrasions and minimal swelling no drainage present no warmth of skin tissue, full mobility of facial muscles noted, some t
[2024-03-28] MEDS: TETANUS,DIPHTHERIA,AC PERTUSSIS ADULT (0.5 ML) BOOSTRIX IM (18:17)
== END 2024-03-28 18:28 | disposition home or self-care (01) ==
PROVIDERS: Emergency Provider Registered Nurse; PCP Family Medicine
DX: S01.83XA Puncture wound without foreign body of other part of head, initial encounter (principal); W54.0XXA Bitten by dog, initial encounter; Z23 Encounter for immunization; E27.1 Primary adrenocortical insufficiency; Z86.14 Personal history of Methicillin resistant Staphylococcus aureus infection
CPT/HCPCS: 90471; 90715; 99213; G0463

== ENCOUNTER 2024-04-15 04:06 | Emergency (ER) | payer BC, SELFPAY ==
[2024-04-15] VITALS (15 sets, daily range): BP systolic 100–136; BP diastolic 62–113; PULSE 69–103; RESP 13–24; TEMP 36.6; O2SAT 99–100
--- NOTE | ~2024-04-15 | XR_ITS ---
XR chest 1V portable 04/15/2024 06:45 Indication: Shortness of breath and chest pain Procedure: AP portable chest Comparison: 10/10/2020 Findings: Borderline heart size. No focal air space disease, pulmonary edema, pleural effusion or silvia pected pneumothorax. Impression: 1: No acute cardiopulmonary disease. Reviewed, dictated and finalized at location B. Impression: 1: No acute cardiopulmonary disease.
--- NOTE | 2024-04-15 06:29 | ECG_ITS ---
Test Date: 2024-04-15 06:35:16 Measurements Intervals [place] Rate: 82 P: 59 [place]: 182 QRS: 38 QRSD: 75 T: 17 QT: 359 QTc: 421 Interpretive Statements SINUS RHYTHM BORDERLINE ST-T WAVE ABNORMALITY- INFERIOR LEADS BASELINE ARTIFACT- I, II, III, AVR, AVL, AVF, V6 BORDERLINE ECG No previous ECG available for comparison Electronically Signed On 04-15-2024 08:40:42 CDT by Nicolas Murillo D.O.
[2024-04-15 06:49] LABS: Basophils Percent Auto 0.4 % (0.2-1.2); Eosinophils Percent Auto 0.9 % (0-4.4); Hematocrit 43.2 % (37.0-47.0); Hemoglobin 14.4 g/dL (12.0-15.0); Immature Granulocyte Absolute 0.01 K/mm3 (0.00-0.031); Immature Granulocyte Percent A 0.2 % (0-0.5); Lymphocytes Absolute Auto 1.28 K/mm3 (0.9-3.2); Lymphocytes Percent Auto 27.6 % (18.3-44.2); Mean Corpuscular HGB Conc 33.3 g/dl (32-36); Mean Corpuscular Volume 93.1 fl (80-100); Mean Platelet Volume 11.8 fl (7.4-10.4); Monocytes Absolute Auto 0.4 K/mm3 (0.1-0.6); Monocytes Percent Auto 8.9 % (2.6-8.5); Neutrophils Absolute Auto 2.9 K/mm3 (1.3-6.7); Platelet Count Result 224 k/mm3 (150-375); Red Blood Count 4.64 M/mm3 (4.2-5.4); Red Cell Distribution Width 11.6 % (11.5-14.5); White Blood Count 4.6 K/mm3 (4.5-10.0)
--- NOTE | 2024-04-15 08:17 | ED.SOB ---
HPI - SOB/Dyspnea General Chief Complaint: Shortness of Breath/Dyspnea Stated Complaint: dyspnea Time Seen by Provider: 04/15/24 08:14 Source: patient and family Mode of arrival: ambulatory Limitations: no limitations History of Present Illness HPI Narrative: Patient presents concern for difficulty breathing that occurred while she was work. She recently had a upper respiratory infection/flu-like symptoms which she describes as body aches and fever and headache starting 2 days ago. She also has a history of several episodes of pneumonia including is full of pneumonia. She also states she has a chest deformity and her primary care physician is trying to help her establish with a geophysical laboratory director given her history but she has not yet been able to see one. Patient states it feels like she can not expand [her] lungs. Symptoms worse with walking and deep breaths. She also experienced tingling in her hands. She had a cough yesterday that has alternated between dry and slightly productive. Her last fever was 2 days ago. No leg swelling, hemoptysis, recent surgery or trauma, no history pulmonary embolism or DVT, and not on exogenous hormones. Related Data Home Medications Medication Instructions Recorded Confirmed Ubrelvy 03/28/24 fluticasone furoate 200 inhalation 03/28/24 mcg-vilanterol 25 mcg/dose inhalation powder (Breo Ellipta) pantoprazole 40 mg tablet,delayed mg PO 03/28/24 release tramadol 50 mg tablet mg 03/28/24 Allergies Allergy/AdvReac Type Severity Reaction Status Date / Time No Known Allergies Allergy Verified 03/28/24 17:18 [facility] Past Medical History Medical History Addisons disease reports that she does not take daily steroid Clostridioides difficile infection november 2021 Eosinophilic pneumonia History of recurrent pneumonia MRSA infection right hip in past 2016 Surgical History Surgical History History of ankle surgery ankle fusion right History of hysterectomy History of tonsillectomy Hx of cholecystectomy Family History Family History Other No significant family history Social History Social History Smoking status: Former smoker Tobacco type: e-cigarettes/vaping Alcohol intake: former Alcohol use details: LAST DRANK 3 YRS AGO Substance use: never Substance use type: does not use Living arrangements: with family Occupation/Education: occupation Gender identity (if verbalized by the patient): Female Sexual Orientation (if Verbalized by the Patient): Straight or Heterosexual Exam Narrative: GENERAL: Well-appearing, well-nourished, and in no acute distress. HEAD: Normocephalic, atraumatic. EYES: Non injected, non icteric ENT: Nares clear, no rhinorrhea or epistaxis. NECK: Supple. CHEST: Speaking in full sentences. No respiratory distress. Lungs clear to auscultation bilaterally without crackles, wheezes, or areas focal consolidation. Non labored. HEART: Regular rate and rhythm. . ABDOMEN: Soft, nondistended. EXTREMITIES: Normal range of motion. No lower extremity edema. SKIN: Warm, dry, no rash. NEURO: No focal deficits. Alert and oriented x3. PSYCH: Normal mood and affect. Course Vital Signs Vital signs: Vital Signs Temperature 97.9 F 04/15/24 04:10 Pulse Rate 94 04/15/24 04:10 Respiratory Rate 24 H 04/15/24 04:10 Blood Pressure 136/70 04/15/24 04:10 Pulse Oximetry 100 04/15/24 04:10 Oxygen Delivery Room Air 04/15/24 04:10 Temperature 97.9 F 04/15/24 04:10 Pulse Rate 82 04/15/24 09:31 Respiratory Rate 18 04/15/24 09:31 Blood Pressure 110/78 04/15/24 09:31 Pulse Oximetry 100 04/15/24 09:31 Oxygen Delivery Room Air 04/15/24 06:33 MDM - SOB/Dys
[2024-04-15 09:05] LABS: Alanine Aminotransferase 26 U/L (6-35); Albumin Level 4.4 g/dL (3.5-5.1); Alkaline Phosphatase 53 U/L (38-126); Anion Gap 13 mmol/L (4-12); Aspartate Amino Transferase 50 U/L (14-36); Bilirubin,Total 0.4 mg/dL (0.2-1.3); Blood Urea Nitrogen 5 mg/dL (7-17); Calcium 8.9 mg/dL (8.4-10.2); Carbon Dioxide 21 mmol/L (22-30); Chloride 105 mmol/L (98-107); Estimated CRCL calculation 110 ml/min; Estimated Glomerular Filt Rate > 60; Glucose 86 mg/dL (65-110); Potassium 3.1 mmol/L (3.4-5.0); Sodium 139 mmol/L (137-145)
[2024-04-15 09:10] LABS: Influenza A QL RT-PCR Negative (Negative); Influenza B QL RT-PCR Negative (Negative); RSV RNA, RT-PCR Negative (Negative); SARS-CoV-2 RNA PCR Positive (Negative)
[2024-04-15 09:17] LABS: Magnesium 1.8 mg/dL (1.6-2.3)
[2024-04-15] MEDS: POTASSIUM BICARBONATE 25 MEQ TABEF 50 MEQ PO (09:34)
== END 2024-04-15 09:49 | disposition home or self-care (01) ==
PROVIDERS: Emergency Medicine; Emergency Provider Student in an Organized Health Care Education/Training Program; PCP Family Medicine
DX: U07.1 COVID-19 (principal); E87.6 Hypokalemia; E27.1 Primary adrenocortical insufficiency; Z86.14 Personal history of Methicillin resistant Staphylococcus aureus infection; Z87.01 Personal history of pneumonia (recurrent); Z87.891 Personal history of nicotine dependence; Z90.710 Acquired absence of both cervix and uterus; Z90.49 Acquired absence of other specified parts of digestive tract; Z79.899 Other long term (current) drug therapy; R94.31 Abnormal electrocardiogram [ECG] [EKG]
CPT/HCPCS: 36415; 71045; 80053; 83735; 85025; 87637; 93005; 99284; A9270